=== PATIENT | male | born 1980 | race Caucasian/White ===

== ENCOUNTER 2021-09-17 14:29 | Emergency (ER) | payer SELFPAY ==
[~2021-09-17] VITALS: Ht 177.8 cm; Wt 91.0 kg
[2021-09-17 14:40] VITALS: BP 143/89
[2021-09-17] MEDS ORDERED: KEPP500 MT (15:25)
[2021-09-17] MEDS ORDERED: LEVETIRACETAM 500MG/5ML CUP PO ONE (15:30)
== END 2021-09-17 16:40 | disposition home or self-care (01) ==
LOC: ER 14:29
DX: R56.9 Unspecified convulsions (principal)
CPT/HCPCS: 99283

== ENCOUNTER 2021-12-04 18:14 | Emergency (ER) | payer SELFPAY ==
[~2021-12-04] VITALS: Ht 182.9 cm; Wt 81.0 kg
[~2021-12-04 18:14] MED LIST: KEPP500 MT
[2021-12-04] MEDS ORDERED: LEVETIRACETAM 1000MG PREMIX 100 ML IV ONE (18:30)
[2021-12-04 19:24] LABS: BASOPHILS % 1.1 % (0.0-2.0); EOSINOPHILS % 2.4 % (0.0-5.0); HEMATOCRIT. 42.3 % (42.0-52.0); HEMOGLOBIN. 14.5 g/dL (14.0-18.0); LYMPHOCYTES % 32.6 % (20.0-50.0); MEAN CORPUSCULAR HEMOGLOBIN 31.6 pg (28.0-32.0); MEAN CORPUSCULAR VOLUME 92.1 fL (80.0-94.0); MEAN PLATELET VOLUME 7.7 fl (7.4-10.4); MONOCYTES % 7.3 % (2.0-8.0); NEUTROPHILS % 56.6 % (40.0-76.0); PLATELET 290 x1000/uL (130-400); RED BLOOD CELL COUNT 4.59 mill/uL (4.7-6.1); RED CELL DISTRIBUTION WIDTH 15.4 % (11.6-14.6)
[2021-12-04 19:41] LABS: CHLORIDE 105 mEq/L (98-107)
[2021-12-04 19:55] LABS: ETHANOL BLOOD < 10 mg/dL
[2021-12-04 20:00] VITALS: BP 129/94
[2021-12-04] MEDS ORDERED: KEPP500 MT (20:06)
== END 2021-12-04 20:05 | disposition home or self-care (01) ==
LOC: ER 18:14
DX: R56.9 Unspecified convulsions (principal); Z53.29 Procedure and treatment not carried out because of patient's decision for other reasons
CPT/HCPCS: 36415; 80053; 80320; 82542; 85025; 93005; 96365; 99284; J1953; G0480

== ENCOUNTER 2022-01-19 14:43 | Emergency (ER) | payer SELFPAY ==
[~2022-01-19] VITALS: Ht 182.9 cm; Wt 82.0 kg
[2022-01-19] MEDS: LEVETIRACETAM 500MG TABLET PO ONE (15:22)
[2022-01-19 15:54] LABS: BASOPHILS % 0.8 % (0.0-2.0); EOSINOPHILS % 2.3 % (0.0-5.0); HEMATOCRIT. 37.6 % (42.0-52.0); HEMOGLOBIN. 12.8 g/dL (14.0-18.0); LYMPHOCYTES % 31.2 % (20.0-50.0); MEAN CORPUSCULAR HEMOGLOBIN 31.8 pg (28.0-32.0); MEAN CORPUSCULAR VOLUME 93.2 fL (80.0-94.0); MEAN PLATELET VOLUME 7.4 fl (7.4-10.4); NEUTROPHILS % 58.7 % (40.0-76.0); PLATELET 248 x1000/uL (130-400); RED BLOOD CELL COUNT 4.04 mill/uL (4.7-6.1); RED CELL DISTRIBUTION WIDTH 15.3 % (11.6-14.6)
[2022-01-19] MEDS ORDERED: KEPP500 MT (15:54)
[2022-01-19 15:59] VITALS: BP 135/74
[2022-01-19 16:03] LABS: CHLORIDE 109 mEq/L (98-107)
[2022-01-19 16:10] LABS: ETHANOL BLOOD < 10 mg/dL
== END 2022-01-19 16:01 | disposition home or self-care (01) ==
LOC: ER 15:02
DX: R56.9 Unspecified convulsions (principal)
CPT/HCPCS: 36415; 80053; 80320; 82962; 85025; 99283; G0480